=== PATIENT | female | born 1965 | race Caucasian/White ===

== ENCOUNTER 2020-12-05 07:01 | Day surgery (SDC) | payer OTHER ==
[~2020-12-05] VITALS: Ht 167.6 cm; Wt 97.7 kg
[~2020-12-05 07:01] MED LIST: CYCLOBENZAPRINE10 MG PO; DAILY MULTIPLE1 EACH PO; HYDROCHLOROTHIA25 MG PO; K-TAB ER20 MEQ PO; LISINOPRIL20 MG PO; NORCO 5-325 TA1 EACH PO; NORVASC5 MG PO; OMEGA 3 1,0001 EACH PO; VITAMIN B122500 MCG PO
--- NOTE | 2020-12-05 08:30 | NUR ---
PT ALERT, ORIENTED AND SUPPORTED BY HER NATALIIA. THHIS IS PTS' FIRST SCOPE-PREP SOMEWHAT OF A CHALLENGE. PT SEEMED TO TAKE IT IN STRIDE. NATALIIA WILL REMAIN, GAVE BLDG USE INSTRUCIONS. ALL QUESTIONS ASKED WERE ANSWERED. PT REQUESTED PRAYER, WILL FOLLOW NEEDED
--- NOTE | 2020-12-05 09:14 | NUR ---
12/05/20 0914 Margarette Pinto 4915 PT ARRIVED TO PACU ASLEEP AND VSS. RESP EVEN AND UNLABORED. 0908 PT WAKES AND DENIES PAIN AND NAUSEA. ASKING FOR COFFEE. O2 REMOVED. 0914 PT SITTING IN HIGH FOWLERS AND SIPPING COFFEE.
--- NOTE | 2020-12-05 10:38 | OR ---
[facility] [address] [place], [place] [address] Signed DATE OF OPERATION: 12/05/2020 SURGEON: Juan David Elaine MD PREOPERATIVE DIAGNOSIS: Screening. POSTOPERATIVE DIAGNOSES: 1. 4 mm polyp at 22 cm. 2. 4 mm polyp at 45 cm. PROCEDURE: Colonoscopy with hot biopsy. ESTIMATED BLOOD LOSS: None. INDICATIONS: Hayde is a 54-year-old female, asked to see me for her initial screening colonoscopy. She reminded me I helped her in the past. Consequently, they are familiar with this process. She has no lower GI complaints. There is no family history of colon cancer or polyps. I gave her a pamphlet in the office on colonoscopy and we have reviewed the nature of the test. She understands the test along with its risks including, but not limited to gas bloating, crampy abdominal pain, bleeding, perforation requiring surgery, and missed diagnosis. We also reviewed the need for IV conscious sedation. She had expressed understanding and wished to proceed. PROCEDURE NOTE: Hayde was taken into our endoscopy suite and placed in the left lateral decubitus position. She was given a total of 7 mg of Versed and 150 mcg of fentanyl to cover the case. A digital rectal exam was performed and this was unremarkable. The adult colonoscope was introduced and advanced under direct visualization of camera into the cecum itself. It took a little extra sedation abdominal compression in order to advance the scope. Her prep was quite good. We could easily see the appendiceal orifice and the ileocecal valve. We took pictures throughout for photodocumentation. The scope was slowly withdrawn. The above two polyps were easily removed with the help of hot biopsy forceps. There was no diverticulosis. The rectum was unremarkable. Upon retroflexion of scope, there was no additional pathology noted above the anal canal. After this, the gas was suctioned out and the colonoscope removed. Hayde tolerated the procedure quite well. Electronically Signed By: JUAN DAVID ELAINE MD 12/05/20 1038 PATIENT NAME: HAYDE ZHANG OPERATIVE REPORT DATE OF : 69 REPORT #: [id number] PHYSICIAN: JUAN DAVID ELAINE MD PCP: ANT CADET DO REPORT IS CONFIDENTIAL AND NOT TO BE RELEASED WITHOUT AUTHORIZATION [address] [address] Signed RECOMMENDATIONS: I will see Hayde back in my office in 7 to 14 days to review her results. Juan David Elaine MD ALB/MODL /[id number] cc: MD Ant Sales DO Copies: JUAN DAVID ELAINE MD, ARIAN DO ~ Electronically Signed By: JUAN DAVID ELAINE MD 12/05/20 1038 PATIENT NAME: HAYDE ZHANG OPERATIVE REPORT DATE OF : 69 REPORT #: [id number] PHYSICIAN: JUAN DAVID ELAINE MD PCP: ANT CADET DO REPORT IS CONFIDENTIAL AND NOT TO BE RELEASED WITHOUT AUTHORIZATION
--- NOTE | 2020-12-07 17:12 | PATH ---
[facility] [address] [facility] [place], [place] [address] Signed SPECIMEN(S): A COLON POLYP AT 22 CM SPECIMEN(S): B COLON POLYP AT 45 CM SPECIMEN SOURCE: A. COLON POLYP AT 22 CM B. COLON POLYP AT 45 CM CLINICAL HISTORY: Colonoscopy. Initial screening/colon polyps. MICROSCOPIC DESCRIPTION: Histologic sections of all submitted blocks are examined by light microscopy. These findings, together with the gross examination, support the pathologic diagnosis. FINAL PATHOLOGIC DIAGNOSIS: A. Colon, polyp at 22 cm, polypectomy: - Tubular adenoma. - Negative for high-grade dysplasia or malignancy. B. Colon, polyp at 45 cm, polypectomy: - Tubular adenoma. - Negative for high-grade dysplasia or malignancy. NAL:cml:C2NR GROSS DESCRIPTION: Two specimens are received in two containers, labeled "SS." A. The specimen, labeled "SS, colon polyp at 22 cm," is received in formalin and consists of one alex soft tissue fragment that measures 0.2 cm in greatest dimension. The specimen is entirely submitted in cassette (A1). B. The specimen, labeled "SS, colon polyp at 45 cm," is received in formalin and consists of one alex soft tissue fragment that measures 0.2 cm in greatest dimension. The specimen is entirely submitted in cassette (B1). JS (under the direct supervision of a pathologist) The Gross Description was prepared using a voice recognition system. The report was reviewed for accuracy; however, sound-alike word errors, addition and/or deletions may occur. If there is any question about this report, please contact Client Services. PERFORMING LABORATORY: The technical component was performed by [place]on[place]ister, Kvng Webber, PATIENT NAME: JOAQUIN ZHANG PATHOLOGY DATE OF : 69 REPORT #: [id number] PHYSICIAN: DUSTY PATHOLOGY PCP: TUSHAR CADET DO REPORT IS CONFIDENTIAL AND NOT TO BE RELEASED WITHOUT AUTHORIZATION [facility] [address] [place], [place] [address] [place] [address] (Maintenance Parts Technician: Diamond Baron MD; CLIA# [id number]). Professional interpretation was performed by [employer] [facility], [address] [address] (CLIA# [id number]). Diagnostician: Fatou Schumacher MD Pathologist Electronically Signed 12/07/2020 Copies: ~ PATIENT NAME: JOAQUIN ZHANG PATHOLOGY DATE OF : 69 REPORT #: [id number] PHYSICIAN: DUSTY PATHOLOGY PCP: TUSHAR CADET DO REPORT IS CONFIDENTIAL AND NOT TO BE RELEASED WITHOUT AUTHORIZATION
== END 2020-12-05 09:35 | disposition home or self-care (01) ==
LOC: DS 07:01 → OPS 07:01 → DS 08:15 → OPS 08:15
PROVIDERS: ATTEND Colon & Rectal Surgery
PROC: 0DBE8ZZ Excision of Large Intestine, Via Natural or Artificial Opening Endoscopic (ICD-10-PCS; principal; 2020-12-05 08:15)
DX: Z12.11 Encounter for screening for malignant neoplasm of colon (principal); D12.6 Benign neoplasm of colon, unspecified; I10 Essential (primary) hypertension; E66.9 Obesity, unspecified; Z68.34 Body mass index [BMI] 34.0-34.9, adult; Z88.8 Allergy status to other drugs, medicaments and biological substances
CPT/HCPCS: 99153; G0500; J2250; J3010; J7121

== ENCOUNTER 2025-10-15 05:46 | Emergency (ER) | payer OTHER ==
[~2025-10-15] VITALS: Ht 167.6 cm; Wt 92.3 kg
[2025-10-15] MEDS ORDERED: ASPIRIN 81 MG CHEW PO ONE (06:00)
[2025-10-15 06:09] LABS: BASOPHILS 0.6 % (0.1-1.2); EOSINOPHILS 3.5 % (0.7-5.8); LYMPHOCYTES 37.4 % (19.3-51.7); MCH 27.5 PG (25.6-32.2); MCHC 32.9 g/dL (32.2-35.5); MCV 83.7 fL (79.4-94.8); MONOCYTES 6.6 % (4.7-12.5); NEUTROPHILS 51.5 % (34.0-71.1); RBC 5.34 M/uL (3.93-5.22)
[2025-10-15] MEDS ORDERED: NITROGLYCERIN 0.4 MG SUBL SL PRN (06:15)
[2025-10-15 06:33] LABS: ALT (SGPT) 39.0 U/L (14-59); AST (SGOT) 15.0 U/L (15-37); GLOMERULAR FILTRATION RATE,EST 101.0 mL/min (>60); PROTEIN, TOTAL 7.0 g/dL (6.4-8.2); UREA NITROGEN 22.0 mg/dL (7-18)
[2025-10-15 07:11] LABS: INR 0.91 (0.80-1.30); PROTIME 11.6 Sec (11.2-14.2)
[2025-10-15 09:10] VITALS: BP 130/101
--- NOTE | 2025-10-15 21:30 | EKG ---
[facility] [address] [facility] [place] [address] Signed Normal sinus rhythm Left bundle branch block Abnormal ECG No previous ECGs available Confirmed by Pilar Sam MD () on 10/15/2025 9:29:55 PM Electronically Signed By: PILAR SAM MD 10/15/252129 PATIENT NAME: JOAQUIN ZHANG Electrocardiogram DATE OF : 69 PHYSICIAN: PILAR SAM MD REPORT #: [id number] REPORT IS CONFIDENTIAL AND NOT TO BE RELEASED WITHOUT AUTHORIZATION
--- NOTE | 2025-10-15 21:31 | EKG ---
[facility] [address] [facility] [place] [address] Signed Normal sinus rhythm Left axis deviation Left bundle branch block Abnormal ECG Confirmed by Pilar Sam MD () on 10/15/2025 9:30:53 PM Electronically Signed By: PILAR SAM MD 10/15/252130 PATIENT NAME: JOAQUIN ZHANG Electrocardiogram DATE OF : 69 PHYSICIAN: PILAR SAM MD REPORT #: [id number] REPORT IS CONFIDENTIAL AND NOT TO BE RELEASED WITHOUT AUTHORIZATION
== END 2025-10-15 09:10 | disposition home or self-care (01) ==
LOC: ED 05:46
PROVIDERS: Internal Medicine
DX: R07.9 Chest pain, unspecified (principal); I10 Essential (primary) hypertension; Z87.891 Personal history of nicotine dependence; Z79.899 Other long term (current) drug therapy
CPT/HCPCS: 36415; 71275; 74174; 80053; 83880; 84484; 85025; 85379; 85610; 85730; 93005; 93010; 99285-25; A9270; Q9967